=== PATIENT | male | born 1950 | race Caucasian/White ===

== ENCOUNTER 2017-08-08 09:23 | Outpatient (CLI) | payer MEDICARE ==
--- NOTE | 2017-08-08 12:16 | RAD ---
TWO VIEWS OF THE CHEST: HISTORY: Preoperative radiograph. COMPARISON: 07/03/2005 FINDINGS: Two views of the chest show normal sized cardiomediastinal silhouette. There is no evidence of conso lidation, mass, or pleural effusion. The bones are unremarkable. IMPRESSION: No evidence of acute cardiopulmonary disease. POS: [facility]
[2017-08-08 12:33] LABS: Hematocrit 45.5 % (42.0-52.0); Mean Platelet Volume 7.9 fL (7.4-10.4); Red Blood Cell (RBC) Count 5.13 mill/uL (4.70-6.10); White Blood Cell (WBC) Count 7.5 thou/uL (4.8-10.8)
[2017-08-08 12:39] LABS: PTT 27.6 SEC (22.9-36.1); Prothrombin Time 13.6 SEC (12.0-14.7)
[2017-08-08 12:48] LABS: Bilirubin Negative (Negative); Blood, Urine Negative (Negative); Glucose, Urine (Dipstick) Negative (Negative); Ketone, Urine Negative (Negative); Nitrite Negative (Negative); Protein, Urine (Dipstick) Negative (Neg-Trace); Urobilinogen 0.2 mg/dL (0.2-1.0)
[2017-08-08 12:51] LABS: Bacteria/HPF None Seen HPF (None Seen); Hyaline Casts/LPF 0-3 HYALINE CAST LPF (0-3 Hyaline); RBC/HPF 0-3 HPF (0-3); Squamous Epithelial None Seen HPF (0-3); WBC/HPF None Seen HPF (0-3)
[2017-08-08 13:03] LABS: ALT (SGPT) 40 U/L (8-55); AST (SGOT) 26 U/L (5-34); Alkaline Phosphatase 76 U/L (40-150); Anion Gap 12 mmol/L (10-20); BUN (Urea Nitrogen) 19 mg/dL (8.4-25.7); Bilirubin, Total 0.4 mg/dL (0.2-1.2); Calc. Creatinine Clearance 0 mL/min (70-130); Calcium 9.9 mg/dL (7.8-10.44); Carbon Dioxide 29 mmol/L (23-31); Chloride 104 mmol/L (98-107); Estimated GFR-MDRD 67; Globulin 3.2 g/dL (2.4-3.5); Protein, Total 7.5 g/dL (5.8-8.1)
--- NOTE | 2017-08-09 09:06 | EKG ---
Test Reason : PREOP Blood Pressure : / mmHG Vent. Rate : 055 BPM Atrial Rate : 055 BPM P-R Int : 156 ms QRS Dur : 098 ms QT Int : 422 ms P-R-T Axes : 000 014 024 degrees QTc Int : 403 ms Sinus bradycardia Otherwise normal ECG When compared with ECG of 20-APR-2017 09:23, No significant change was found Confirmed by KATHI WITT ([id number]) on 08/09/2017 9:05:57 AM Referred By: MCKENZIE Confirmed By:KATHI WITT
== END 2017-08-08 09:24 | disposition home or self-care (01) ==
LOC: LABBT 09:23
PROVIDERS: ATTEND Urology
DX: Z01.812 Encounter for preprocedural laboratory examination (principal); R97.20 Elevated prostate specific antigen [PSA]
CPT/HCPCS: 71020; 80053; 81001; 85027; 85610; 85730; 87086; 93005; 93010

== ENCOUNTER 2017-08-22 07:08 | Day surgery (SDC) | payer MEDICARE ==
[2017-08-08 09:39] VITALS: BMI 25.0
[2017-08-22] MEDS ORDERED: Levofloxacin 500 mg/D5W 100 ml Premix Bag ONE (08:19)
[2017-08-22] MEDS ORDERED: cefTRIAXone\\ROCEPHIN 1 GM VIAL ONE (08:20)
[2017-08-22] MEDS ORDERED: Sodium Chloride 0.9% 100 ML ONE (08:20)
[2017-08-22] MEDS ORDERED: Propofol 200 MG/20 ML VIAL ONE (12:04)
[2017-08-22] MEDS ORDERED: Lidocaine 1% PF 5 ML VIAL ONE (12:04)
[2017-08-22] MEDS ORDERED: Ondansetron HCl/PF 4 MG/2 ML Vial ONE (12:04)
--- NOTE | 2017-08-22 12:44 | OP ---
DATE OF PROCEDURE: 08/22/2017 PREOPERATIVE DIAGNOSES: 1. A 67-year-old male with history of elevated PSA, prior biopsy negative for malignancy. 2. Presents with elevated PSA, with increased velocity from 4.6-5.4 with mild asymmetric prominence of the right base to mid prostate. POSTOPERATIVE DIAGNOSES: 1. A 67-year-old male with history of elevated PSA, prior biopsy negative for malignancy. 2. Presents with elevated PSA, with increased velocity from 4.6-5.4 with mild asymmetric prominence of the right base to mid prostate. PROCEDURE: Transrectal ultrasound biopsy of the prostate 12 core under anesthesia. SURGEON: Grecia Jeff D.O. ANESTHESIA: TIVA. COMPLICATIONS: None apparent. ESTIMATED BLOOD LOSS: Minimal. DISPOSITION: To the recovery room in stable condition. INTRAOPERATIVE FINDINGS: 1. No evidence of obvious lesion on ultrasound. Urethral length 4.9, height 3.7, width 5.1. Volum e of 50 grams. SPECIMEN: Twelve core needle prostate biopsy. INDICATIONS FOR THE PROCEDURE AND HISTORY: Mr. Chatterjee is a 67-year-old male with history of elev ated PSA prior biopsy negative for malignancy. The patient does not have significant obstructive ur inary symptoms, we previously discussed MRI-guided biopsy as he has persistent elevation of PSA with increased velocity. With previous biopsy he may have had a vasovagal response; however, as such, I advised regarding biopsy under anesthesia. We discussed risks and complications including, but not limited to, bleeding, pain, infection, injury to adjacent organs, urosepsis, chronic pain, vasovaga l episode. He desired to proceed. DESCRIPTION OF THE PROCEDURE: After an informed consent is signed, the patient is taken to the oper ating room, placed in a lateral decubitus position. A digital rectal exam demonstrated no discrete nodules. Mild asymmetric prominence of the right base to mid prostate with no discrete nodules or i nduration noted. An collections technician was present when we used a rectal ultrasound probe and it passed without difficulty. Approximately 8 mL of 1% lidocaine was also utilized to infiltrate for a periprostatic block. At this time, using a 12 core needle biopsy needle gun, we obtained systemat ically, 12 needle core prostate biopsies. This was performed uneventfully and he tolerated the proc edure well. No significant blood per rectum was appreciated. He will follow up with mt 08/29/2017 at 2:45. The patient will be advised regarding abstinence of ibuprofen and aspirin products. Short course of Flomax will be provided given recent biopsy. We will provide 3 days of Levaquin.
== END 2017-08-22 12:45 | disposition home or self-care (01) ==
LOC: SDC 07:08
PROVIDERS: ATTEND Urology
PROC: 0VB07ZX Excision of Prostate, Via Natural or Artificial Opening, Diagnostic (ICD-10-PCS; principal; 2017-08-22)
DX: N40.0 Benign prostatic hyperplasia without lower urinary tract symptoms (principal); E78.00 Pure hypercholesterolemia, unspecified; I10 Essential (primary) hypertension; K21.9 Gastro-esophageal reflux disease without esophagitis; Z79.899 Other long term (current) drug therapy; Z98.890 Other specified postprocedural states; Z83.3 Family history of diabetes mellitus
CPT/HCPCS: 88305; 88342; J0696; J1956; J2001; J2405; J2704; J7050

== ENCOUNTER 2018-10-14 14:37 | Outpatient (CLI) | payer MEDICARE ==
[~2018-10-14 14:37] MED LIST: Gadobenate Dimeglumine 529 MG/1 ML (20ML VIAL) ONE
--- NOTE | 2018-10-15 14:15 | MRI ---
MRI PROSTATE WITHOUT AND WITH CONTRAST: Date: 10/14/18 COMPARISON: None. HISTORY: Elevated PSA. Previous negative prostate biopsies. TECHNIQUE: Multiplanar, multisequence MR images were obtained of the prostate without and with contrast. This ex amination was evaluated with a [employer] workstation. FINDINGS: There is mild to moderate hypertrophy of the central gland consistent with BPH. No suspicious lesions are seen in the central gland or in the peripheral zone of the prostate. Seminal vesicles are intact . The neurovascular bundles appear intact. There are scattered diverticula in the colon. No pelvic abnormality is seen. No marrow signal abnormality is present. No restricted diffusion is seen on this examination. IMPRESSION: PI-RADS Category 1 - Very low likelihood that a clinically significant cancer is present. POS: [facility]
== END 2018-10-14 14:38 | disposition home or self-care (01) ==
LOC: TBSIIMAG 14:37
PROVIDERS: ATTEND Urology
DX: R97.20 Elevated prostate specific antigen [PSA] (principal)
CPT/HCPCS: 72197; 82565; A9579

== ENCOUNTER 2023-03-09 09:07 | Outpatient (CLI) | payer MEDICARE ==
[2023-03-09 10:39] LABS: Bilirubin Neg (Negative); Blood, Urine Negative (Negative); Clarity Clear (Clear); Glucose, Urine (Dipstick) Normal (Negative); Ketone, Urine Negative (Negative); Leukocyte Negative (Negative); Nitrite Negative (Negative); Protein, Urine (Dipstick) Negative (Neg-Trace); Urobilinogen Normal mg/dL (Less than 2)
[2023-03-09 10:41] LABS: Hemoglobin 15.7 g/dL (13.5-17.5); Mean Corpuscular HGB CONC 33.5 g/dL (32.0-36.0); Mean Corpuscular Hemoglobin 28.1 pg (27.0-33.0); Mean Corpuscular Volume 83.9 fl (81.2-95.1); Mean Platelet Volume 10.2 fl (7.4-10.4); Platelet Count 226 10x3/uL (150-450); RBC Distribution Width 14.4 % (11.5-14.5); Red Blood Cell (RBC) Count 5.58 10x6/uL (4.32-5.72); White Blood Cell (WBC) Count 7.5 10x3/uL (3.5-10.5)
[2023-03-09 11:01] LABS: Anion Gap 16 mmol/L (10-20); BUN (Urea Nitrogen) 22 mg/dL (8.4-25.7); Calc. Creatinine Clearance 0 mL/min (70-130); Calcium 9.4 mg/dL (7.8-10.44); Carbon Dioxide 24 mmol/L (23-31); Chloride 105 mmol/L (98-107); Estimated GFR 51; Glucose 108 mg/dL (83-110); Potassium 4.1 mmol/L (3.5-5.1); Sodium 141 mmol/L (136-145)
[2023-03-09 11:05] LABS: PTT 25.4 sec (22.0-33.0); Prothrombin Time 10.5 sec (9.5-12.1)
[2023-03-09 11:14] LABS: Bacteria/HPF None Seen HPF (None Seen); RBC/HPF 0-3 HPF (0-3); Sperm/HPF Rare HPF (None Seen); Squamous Epithelial None Seen HPF (0-3); WBC/HPF None Seen HPF (0-3)
== END 2023-03-09 09:08 | disposition home or self-care (01) ==
LOC: LABBT 09:07
PROVIDERS: ATTEND Urology
DX: Z01.818 Encounter for other preprocedural examination (principal); Z12.5 Encounter for screening for malignant neoplasm of prostate; K40.90 Unilateral inguinal hernia, without obstruction or gangrene, not specified as recurrent; R97.20 Elevated prostate specific antigen [PSA]; N40.1 Benign prostatic hyperplasia with lower urinary tract symptoms; R35.1 Nocturia; Z98.890 Other specified postprocedural states
CPT/HCPCS: 71046; 80048; 81001; 85027; 85610; 85730; 87086; 93005; 93010

== ENCOUNTER 2023-03-21 05:45 | Day surgery (SDC) | payer MEDICARE ==
[2023-03-09 09:49] VITALS: BMI 29.7
[2023-03-21] MEDS ORDERED: Lidocaine 1% MPF 2 ML VIAL ONE (06:35)
[2023-03-21] MEDS ORDERED: Meropenem 1 GM in Sodium Chloride 0.9% 100 ML IVPB SCH (06:45)
[2023-03-21] MEDS ORDERED: Propofol 500 MG/50 ML VIAL ONE (08:50)
[2023-03-21] MEDS ORDERED: fentaNYL PF 100 MCG/2 ML SYRINGE ONE (08:50)
[2023-03-21] MEDS ORDERED: Midazolam HCl 2 mg/2 ml Vial ONE (08:50)
[2023-03-21] MEDS ORDERED: Ketamine In 0.9 % NaCl 50 MG/5 ML SYRINGE ONE (08:50)
[2023-03-21] MEDS ORDERED: PROPOFOL 200 MG/20 ML VIAL ONE (09:02)
[2023-03-21] MEDS ORDERED: Tamsulosin HCl 0.4 MG CAP ONE (09:34)
== END 2023-03-21 10:38 | disposition home or self-care (01) ==
LOC: SDC 05:45
PROVIDERS: ATTEND Urology
PROC: 0VB03ZX Excision of Prostate, Percutaneous Approach, Diagnostic (ICD-10-PCS; principal; 2023-03-21)
DX: N40.1 Benign prostatic hyperplasia with lower urinary tract symptoms (principal); R35.1 Nocturia; I10 Essential (primary) hypertension; E78.00 Pure hypercholesterolemia, unspecified; K21.9 Gastro-esophageal reflux disease without esophagitis; Z79.899 Other long term (current) drug therapy
CPT/HCPCS: C1747; G0416; J2185; J2250; J2704; J3490